=== PATIENT | female | born 1960 | race Caucasian/White ===

== ENCOUNTER 2022-07-23 19:33 | Emergency (ER) | payer OTHER ==
[~2022-07-23] VITALS: Ht 170.2 cm; Wt 99.8 kg
--- NOTE | 2022-07-23 19:35 | NUR ---
Patient to ER bed 04 to gown for evaluation. Side rails up.
[2022-07-23 19:53] VITALS: BP_SYST 119
--- NOTE | 2022-07-23 19:55 | NUR ---
Received report from IZZY Camargo; assuming care of patient at this time.
--- NOTE | 2022-07-23 20:00 | NUR ---
Patient presents to ED from home with c/o left ankle pain and deformity. Patient reports pain 5/10 at this time. Patient states "I was in the kitchen cooking when I slipped and fell on the floor. My left ankle hit the door frame and I felt something pop. When my tried to help me up I felt pain when I put weight on it. I don't feel pain when I'm laying down and not moving it, but I do when I move it." Patient A/Ox4, VSS, resp even and unlabored. Patient's daughter at bedside. Nad noted at this time.
--- NOTE | 2022-07-23 20:30 | NUR ---
Radiology at bedside for xrays on left ankle.
--- NOTE | 2022-07-23 20:45 | NUR ---
ASHELY Cole at bedside.
--- NOTE | 2022-07-23 21:10 | NUR ---
# 22 gauge angiocath placed to right hand. Use of asceptic technique. Opsite placed over site. Blood return noted. Flushed with 10 cc of normal saline. No evidence of infiltration noted. Patient tolerated well.
[2022-07-23] MEDS ORDERED: KETAMINE HCL 500 MG/10 ML VIAL IVP ONE (21:15)
--- NOTE | 2022-07-23 21:39 | NUR ---
ER MD at bedside explaining moderate sedation procedure to patient and patient's daughter. Patient signed consent for moderate sedation at this time.
[2022-07-23] MEDS ORDERED: KETOROLAC TROMETHAMINE 30 MG VIAL IVP ONE (23:15)
--- NOTE | 2022-07-24 00:59 | NUR ---
Time out was called by ER MD Cole. RT, instrument tech, and primary nurse present at this time.
--- NOTE | 2022-07-24 01:00 | NUR ---
ER MD Cole gave patient 100mg Ketamine; pt tolerated well.
--- NOTE | 2022-07-24 01:02 | NUR ---
ER MD Cole administered 50mg Ketamine; patient tolerated well.
--- NOTE | 2022-07-24 01:03 | NUR ---
Patient is fully sedated at this time.
--- NOTE | 2022-07-24 01:04 | NUR ---
ER MD Cole started left ankle reduction on patient.
--- NOTE | 2022-07-24 01:12 | NUR ---
Xray at bedside to confirm ankle reduction.
--- NOTE | 2022-07-24 01:14 | NUR ---
Procedure for left ankle reduction is done; pt tolerated procedure well.
--- NOTE | 2022-07-24 01:19 | NUR ---
Patient is awake at this time.
--- NOTE | 2022-07-24 01:29 | NUR ---
Patient A/Ox4, speaking in complete sentences. Nad noted at this time.
[2022-07-24] MEDS ORDERED: IBUP-1969 PO (02:20)
[2022-07-24 02:40] VITALS: BP_SYST 119
--- NOTE | 2022-07-24 02:40 | NUR ---
Patient given written and verbal discharge instructions and verbalizes understanding. ER MD discussed with patient the results and treatment provided. Patient in stable condition. ID arm band removed. IV catheter removed intact and dressing applied, no active bleeding. Rx of Ibuprofen given. Patient educated on pain management and to follow up with PMD. Pain Scale 0/10. Patient issued crutches for ambulation and LLE placed in splint and secured with rene wrap. Opportunity for questions provided and answered. Medication side effect fact sheet provided. Patient A/Ox4, VSS, resp even and unlabored. Patient in stable condition in wheelchair, accompanied by daughter.
== END 2022-07-24 02:40 | disposition home or self-care (01) ==
LOC: SED 19:33
DX: S93.05XA Dislocation of left ankle joint, initial encounter (principal); S82.52XA Displaced fracture of medial malleolus of left tibia, initial encounter for closed fracture; S82.62XA Displaced fracture of lateral malleolus of left fibula, initial encounter for closed fracture; I10 Essential (primary) hypertension; E78.5 Hyperlipidemia, unspecified; Z88.0 Allergy status to penicillin; Z79.899 Other long term (current) drug therapy; W01.0XXA Fall on same level from slipping, tripping and stumbling without subsequent striking against object, initial encounter; Y93.89 Activity, other specified; Y92.89 Other specified places as the place of occurrence of the external cause; Y99.8 Other external cause status
CPT/HCPCS: 99285; 27750; 73610; 99152; 96374; 73600; J1885

== ENCOUNTER 2022-08-03 09:30 | Day surgery (SDC) | payer OTHER ==
[2022-07-29 11:46] LABS: BASOPHILS % (AUTO) 0.3 % (0.0-2.0); EOSINOPHILS # (AUTO) 0.3 K/uL (0.0-0.4); EOSINOPHILS % (AUTO) 5.2 % (0.0-4.0); HEMATOCRIT 37.4 % (36-48); HEMOGLOBIN 12.8 g/dL (12.0-16.0); LYMPHOCYTES # (AUTO) 1.6 K/uL (1.0-5.5); LYMPHOCYTES % (AUTO) 26.6 % (20.5-51.5); MEAN CORPUSCULAR HEMOGLOBIN 31 pg (27-31); MEAN CORPUSCULAR HGB CONC 34 % (32-36); MEAN CORPUSCULAR VOLUME 92 fL (79.0-98.0); MONOCYTES # (AUTO) 0.5 K/uL (0.0-1.0); MONOCYTES % (AUTO) 7.9 % (1.7-9.3); NEUTROPHILS # (AUTO) 3.7 K/uL (1.8-7.7); PLATELET COUNT (AUTO) 215 K/uL (130-430); RED BLOOD CELL COUNT(AUTO) 4.07 MIL/uL (4.2-6.2); RED CELL DISTRIBUTION WIDTH 13.2 % (9.0-15.0); WHITE BLOOD COUNT (AUTO) 6.1 K/uL (4.8-10.8)
[2022-07-29 12:31] LABS: BILIRUBIN,URINE NEGATIVE (NEGATIVE); CLARITY/URINE CLEAR (CLEAR); COLOR,URINE YELLOW (YELLOW); GLUCOSE,URINE NEGATIVE (NEGATIVE); KETONES,URINE NEGATIVE (NEGATIVE); LEUKOCYTE ESTERASE ,URINE NEGATIVE (NEGATIVE); NITRITE, URINE NEGATIVE (NEGATIVE); PH,URINE 5.5 (5.0-8.0); PROTEIN URINE NEGATIVE (NEGATIVE); UROBILINOGEN,URINE 0.2 (0.2-1.0)
[2022-07-29 12:33] LABS: BLOOD, URINE TRACE (NEGATIVE)
[2022-07-29 12:49] LABS: BACTERIA,URINE None Seen /HPF (None Seen); RBC,URINE 0-3 /HPF (0-3); WBC,URINE NONE SEEN /HPF (0-3)
[2022-07-29 17:50] LABS: CALCIUM 9.8 mg/dL (8.4-11.0)
[~2022-08-03] VITALS: Ht 170.2 cm; Wt 89.1 kg
[~2022-08-03 09:30] MED LIST: IBUP-1969 PO
[2022-08-03] MEDS ORDERED: BUPIVACAINE /EPINEPHRINE/PF 0.25% 30 ML VIAL ONE (11:38)
[2022-08-03] MEDS ORDERED: fentaNYL CITRATE 250 MCG/5 ML AMP ONE (11:38)
[2022-08-03] MEDS ORDERED: CLINDAMYCIN PHOSPHATE 900 mg/50mL D5W IV ONE (11:38)
[2022-08-03] MEDS ORDERED: MIDAZOLAM HCL 5 MG/5 ML VIAL ONE (11:38)
[2022-08-03] MEDS ORDERED: PROPOFOL 200MG/ 20ML VIAL (DIPRIVAN) IV ONE (11:38)
[2022-08-03] MEDS ORDERED: LIDOCAINE 1% 10 MG/ML, 20 ML MDV ONE (11:38)
[2022-08-03] MEDS ORDERED: LR 1,000 ML IV.SOLN IV ONE (11:38)
[2022-08-03] MEDS ORDERED: DEXAMETHASONE SOD PHOSPHATE 4 MG/ML VIAL ONE (11:38)
[2022-08-03] MEDS ORDERED: ONDANSETRON HCL 4 MG/2 ML VIAL ONE (11:38)
[2022-08-03] MEDS ORDERED: NS IRRIG SOLN 1000 ML IR ONE (11:38)
[2022-08-03] MEDS ORDERED: SEVOFLURANE 15 MIN GAS INH ONE (11:38)
[2022-08-03] MEDS ORDERED: ACETAMINOPHEN I.V. 1000 MG 100 ML IV ONE (12:19)
[2022-08-03] MEDS ORDERED: METOCLOPRAMIDE HCL 10 MG/2 ML VIAL IVP PRN (12:45)
[2022-08-03] MEDS ORDERED: HYDROmorphone 1 MG/ML INJ. CARTRIDGE IVP PRN (12:45)
[2022-08-03] MEDS ORDERED: MEPERIDINE HCL/PF 25 MG/ML DISP.SYRIN IVP PRN (12:45)
[2022-08-03] MEDS ORDERED: LR 1,000 ML IV SCH (12:45)
[2022-08-03] MEDS ORDERED: HYDROmorphone 1 MG/ML INJ. CARTRIDGE ONE (14:48)
[2022-08-03] MEDS: HYDROmorphone 1 MG/ML INJ. CARTRIDGE IVP PRN ×2 (14:49→15:00)
[2022-08-03 16:31] VITALS: BP_SYST 142
== END 2022-08-03 17:05 | disposition home or self-care (01) ==
LOC: SDS 09:30 → SMU 09:34 → SDS 17:05
PROVIDERS: ATTEND Student in an Organized Health Care Education/Training Program
DX: S82.852A Displaced trimalleolar fracture of left lower leg, initial encounter for closed fracture (principal); I10 Essential (primary) hypertension; Z88.0 Allergy status to penicillin; X58.XXXA Exposure to other specified factors, initial encounter; Y93.89 Activity, other specified; Y92.89 Other specified places as the place of occurrence of the external cause; Y99.8 Other external cause status; Z20.822 Contact with and (suspected) exposure to COVID-19; Z79.01 Long term (current) use of anticoagulants; Z79.899 Other long term (current) drug therapy
CPT/HCPCS: 80048; 81000; 85025; 85610; 85730; 36415 ×2; 71045; 27822; 76000; 87426; U0003; J3490 ×2; J1100; J2001; J2250; J2405; J2704; J3010; J1170; J7120; C1713 ×8; C1763; J0131; C1769; 76001